=== PATIENT | female | born 1945 | race Caucasian/White ===

== ENCOUNTER 2021-01-28 12:03 | Emergency (ER) | payer MEDICARE ==
[~2021-01-28] VITALS: Ht 165.1 cm; Wt 82.1 kg
[~2021-01-28 12:03] MED LIST: BACTRIM DS TAB1 EACH PO; CARBIDOPA-LEVO1 EAC5 PO; MIRAPEX0.5 MG PO
[2021-01-28] MEDS ORDERED: PRAMIPEXOLE DI1.5 MG PO (12:12)
[2021-01-28] MEDS ORDERED: CARBIDOPA-LEVO1 EAC4 PO (12:12)
[2021-01-28] MEDS ORDERED: SOLIFENACIN SUCC5 MG PO (12:13)
== END 2021-01-28 14:45 | disposition home or self-care (01) ==
LOC: ED 12:03
DX: R10.31 Right lower quadrant pain (principal); R10.32 Left lower quadrant pain; M25.561 Pain in right knee; M25.562 Pain in left knee; W18.30XA Fall on same level, unspecified, initial encounter; G20 Parkinson's disease; E11.9 Type 2 diabetes mellitus without complications; Z79.899 Other long term (current) drug therapy
CPT/HCPCS: 96374; 99283-25; J2270

== ENCOUNTER 2021-03-10 17:05 | Emergency (ER) | payer MEDICARE ==
[~2021-03-10] VITALS: Ht 165.1 cm; Wt 82.1 kg
[~2021-03-10 17:05] MED LIST changes: +CARBIDOPA-LEVO1 EAC4 PO; +PRAMIPEXOLE DI1.5 MG PO; +SOLIFENACIN SUCC5 MG PO
[2021-03-10] MEDS ORDERED: OMEPRAZOLE20 MG PO (17:27)
[2021-03-10] MEDS ORDERED: KEPPRA500 MG PO (19:38)
--- NOTE | 2021-03-12 15:45 | EKG ---
[facility] [address] [facility] [place] [address] Signed Normal sinus rhythm Normal ECG No previous ECGs available Confirmed by AISLINN COLE MD ([id number]) on 03/12/2021 3:45:26 PM Electronically Signed By: AISLINN COLE MD 03/12/21 1545 PATIENT NAME: MIGEL LIN Electrocardiogram DATE OF : 43 PHYSICIAN: AISLINN COLE MD REPORT #: [id number] REPORT IS CONFIDENTIAL AND NOT TO BE RELEASED WITHOUT AUTHORIZATION
== END 2021-03-10 20:23 | disposition home or self-care (01) ==
LOC: ED 17:05
DX: R56.9 Unspecified convulsions (principal); G20 Parkinson's disease; E11.9 Type 2 diabetes mellitus without complications; Z79.4 Long term (current) use of insulin; Z79.899 Other long term (current) drug therapy
CPT/HCPCS: 70450; 71045; 80053; 81001; 83735; 84484; 85025; 93005; 93010; 96374; 99285-25; G0480; J1953; J7030